=== PATIENT | male | born 2000 | race Caucasian/White ===

== ENCOUNTER 2023-07-05 14:03 | Emergency (ER) | payer OTHER ==
[2023-07-05] MEDS: Sodium Chloride 0.9% 10 ML Syringe FLUSH PRN (14:19)
[2023-07-05] MEDS: HYDROmorphone 1 MG/ML Syringe IVPUSH ONE (15:16)
[2023-07-05] MEDS: Lactated Ringers 1,000 ML IV SCH (16:02)
[2023-07-05] MEDS: HYDROmorphone 0.5 MG/0.5 ML Syringe IVPUSH ONE (16:15)
[2023-07-05] MEDS: HYDROmorphone 0.5 MG/0.5 ML Syringe ONE (16:38)
== END 2023-07-05 16:21 ==
LOC: JD.ED 14:03
DX: S82.402A Unspecified fracture of shaft of left fibula, initial encounter for closed fracture (principal); W20.8XXA Other cause of strike by thrown, projected or falling object, initial encounter
CPT/HCPCS: 29515; 73600; 96374; 96376; 99284; J1170; J3490; J7120; 99285